=== PATIENT | female | born 1970 | race Caucasian/White ===

== ENCOUNTER 2016-07-13 16:00 | Emergency (ER) | payer OTHER ==
[~2016-07-13] VITALS: Wt 113.5 kg
[2016-07-13] MEDS ORDERED: MECL12.574 PO (16:36)
--- NOTE | 2016-07-13 16:55 | ERD ---
ER Documentation Chief Complaint Date/Time DATE: 07/13/16 TIME: 16:49 Chief Complaint DIZZINESS X1WEEK WORSE AFTER BENDING DOWN OTHER NEURODEFICITS HPI 46-year-old female is complaining of dizziness 1 week. Patient stated that she feels dizzy whenever she turns her head or bend her head down. The dizziness is intermittent, described the dizziness as the feeling of about to fall with spinning sensation. Patient reports blurry vision during the dizzy spells. She also reports decreased hearing in the left ear 1 day before the onset of the dizziness. Denies fever or chills. Denies ear pain. Denies tinnitus. Denies recent head injuries. ROS All systems reviewed and are negative except as per history of present illness. Medications Home Meds Active Scripts Meclizine Hcl* (Antivert*) 12.5 Mg Tab, 12.5 MG PO Q6H Y for DIZZINESS, #20 TAB Prov:NICO SALDANA. LEHR CUTTER 07/13/16 PMhx/Soc History of Surgery: No Anesthesia Reaction: No Hx Neurological Disorder: No Hx Respiratory Disorders: No Hx Cardiac Disorders: No Hx Psychiatric Problems: No Hx Miscellaneous Medical Probl: No Hx Alcohol Use: No Hx Substance Use: No Hx Tobacco Use: No Smoking Status: Never smoker Physical Exam Vitals Vital Signs Date Time Temp Pulse Resp B/P Pulse Ox O2 Delivery O2 Flow Rate FiO2 07/13/16 16:04 97.3 71 20 138/86 97 Physical Exam General: Well-developed, well-nourished, conscious and coherent, in no distress Skin: Warm and dry without rash, good texture and turgor Head: Normocephalic without evidence of trauma Eyes: Sclera and conjunctivae normal; pupils equal, round, and reactive to light; extraocular movements are intact. Horizontal nystagmus noted bilaterally. Ears: Canals are patent. Tympanic membranes are clear Nose/Face: Without rhinorrhea Mouth/throat: Mucous membranes are moist. Posterior pharynx clear without erythema or exudates Neck: Supple without meningismus or adenopathy. Carotids are equal. Trachea midline. No bruits or JVD Chest: Normal AP diameter. Good expansion without retractions. Nontender. Lungs are clear to auscultate bilaterally with good tidal volume Heart: Regular rate and rhythm. No murmur, rub, or gallops heard Abdomen: Soft and nontender without masses, guarding, or rebound. Bowel sounds are active. No hepatosplenomegaly Back: Without spinal or CVA tenderness Pelvis: Nontender to palpation and stable to compression Extremities: Full range of motion. Good strength bilaterally. No clubbing, cyanosis, or edema. Peripheral pulses are intact. Sensation intact Neuro: Alert and oriented 4, GCS 15. Cranial nerves grossly intact. Motor and sensory exams nonfocal. Moves all extremities. Speech clear. Gait normal Procedures/MDM Well-appearing 46-year-old female presented ED with intermittent vertigo 1 week. She does not have any active ataxia, her speech is clear. I doubt central causes of vertigo such as cerebellar stroke, vertigo artery dissection, acoustic neuroma. Likely her vertigo is either benign positional vertigo,, or M nire's disease. I advised patient to follow-up with her PCP for referral to ENT and physical therapy. Patient appears well, stable for discharge and outpatient management. Medical decision making shared with patient and family. Education provided to patient and family. Patient and family expressed understanding of the plan. Medications on discharge: Meclizine. Follow-up: Primary care provider in 2-3 days or return to ED if worse. Departure Diagnosis: Primary Impression: Vertigo Condition: Good Patient Instructions: Inner Ear Problems: Causes of Dizziness (Vertigo) [facility] Usted se fernandez hecho un examen mdico de control que le indica que no est en latisha condicin que requiera tratamiento urgente en el Departamento de Emergencia. Un estudio ms profundo y el tratamiento de vang condicin pueden esperar sin ningn riesgo hasta que usted sea atendida/o en el consultorio de vang mdico o latisha cl jose. Es responsabilidad suya arreglar latisha dayanara para el seguimiento del aby. MANEJO DE CONDICIONES NO URGENTES EN EL FUTURO 1) Si usted tiene un mdico de atencin primaria: Usted debera llamar a vang mdico de atencin primaria antes de venir al departamento de emergencia. Despus de las horas de consultorio, vang doctor o vang asociado/a est disponible por telfono. El mdico o enfermero de leo en el servicio telefnico puede asesorarle por naya medio para atender el problema, o aby contrario se puede programar latisha dayanara. 2) Si usted no tiene un mdico de atencin primaria: Llame al mdico o clnica de referencia que aparece abajo marie las horas de consultorio para hacer latisha dayanara para que le vean. CLINICAS: [place] [phone] [facility] [phone] [facility] [phone] [place] [phone] [facility]. [place] [address] [phone] [facility] [phone] [address] Additional Instructions: Llame al doctor MAANA y bettina latisha DAYANARA PARA DENTRO DE 2-3 TELLEZ.Dgale a la secretaria que nosotros le instruimos hacer esta dayanara.Avise o llame si vang condicin se empeora antes de la dayanara. Regresa aqui si peor o no mejor. NICO SALDANA NP July 13, 2016 16:55
== END 2016-07-13 17:08 | disposition home or self-care (01) ==
LOC: FTE 16:00
DX: R42 Dizziness and giddiness (principal)
CPT/HCPCS: 99283

== ENCOUNTER 2016-10-21 15:15 | Emergency (ER) | payer OTHER ==
[~2016-10-21] VITALS: Ht 144.8 cm; Wt 115.0 kg
[~2016-10-21 15:15] MED LIST: MECL12.574 PO
[2016-10-21 15:17] VITALS: Ht 144.8 cm; Wt 115.0 kg
[2016-10-21] MEDS ORDERED: HYDROCODONE/APAP (5/325) TAB PO ONE (16:00)
--- NOTE | 2016-10-21 17:10 | RADRPT ---
PROCEDURE: XR left ankle. CLINICAL INDICATION: Left -sided ankle pain TECHNIQUE: AP , oblique and lateral views of theleft ankle were performed. COMPARISON: None. FINDINGS: There is normal mineralization and alignment. No fracture or osseous lesion is identified. The ankle mortis and talar dome are intact.Incidental plantar calcaneal spur is present. Diffuse soft tissue swelling is present. There is no evidence for a radiopaque foreign body. RPTAT:HJJR IMPRESSION: Soft tissue swelling without evidence of acute osseous abnormality of the left ankle. Physician Alli Date Time Electronically viewed and signed by Physician Alli on 10/21/2016 17:09 JR/
--- NOTE | 2016-10-21 17:11 | RADRPT ---
PROCEDURE: XR Tibia and Fibula. CLINICAL INDICATION: Generalized pain TECHNIQUE: AP and lateral of the left tibia and fibula were obtained. COMPARISON: Left ankle series 10/21/2016 FINDINGS: There is normal mineralization and alignment. No fracture or osseous lesion is identified. Diffuse s oft tissue swelling is present. There is no evidence of subcutaneous gas or radiopaque foreign body . RPTAT:HJJR IMPRESSION: Soft tissue swelling without evidence of osseous abnormality involving the left tibia and fibula. Physician Alli Date Time Electronically viewed and signed by Physician Alli on 10/21/2016 17:10 /
[2016-10-21] MEDS ORDERED: IBUP-1542 PO (17:45)
--- NOTE | 2016-10-21 18:35 | ERD ---
ER Documentation Chief Complaint Date/Time DATE: 10/21/16 TIME: 18:31 Chief Complaint LEFT MEDIAL MALLEOUS SWELLING & PAIN X 5 DAYS HPI This is a 46-year-old female presents to the ER with left ankle pain that started 5 days ago after she twisted her ankle. Patient tried taking ibuprofen for her pain however has not worked. Pain is severe and constant, it is worse whenever she walks. She states that area has also gotten slightly swollen. She denies any numbness tingling or weakness of her foot. She denies any redness. She denies any fevers or chills. ROS 12 point review of systems was done, all negative except per HPI. Medications Home Meds Active Scripts Ibuprofen* (Motrin*) 600 Mg Tab, 600 MG PO Q6, #30 TAB Prov:BRUNA GARCIA 10/21/16 Meclizine Hcl* (Antivert*) 12.5 Mg Tab, 12.5 MG PO Q6H Y for DIZZINESS, #20 TAB Prov:NICO SALDANA. AUTOMATIC LATHE OPERATOR 07/13/16 Allergies Allergies: Coded Allergies: No Known Allergy (Unverified , 10/21/16) PMhx/Soc History of Surgery: No Anesthesia Reaction: No Hx Neurological Disorder: No Hx Respiratory Disorders: Yes (ASTHMA ) Hx Cardiac Disorders: No Hx Psychiatric Problems: No Hx Miscellaneous Medical Probl: No Hx Alcohol Use: No Hx Substance Use: No Hx Tobacco Use: No Smoking Status: Never smoker Physical Exam Vitals Vital Signs Date Time Temp Pulse Resp B/P Pulse Ox O2 Delivery O2 Flow Rate FiO2 10/21/16 15:17 98.4 86 20 159/84 97 Physical Exam GENERAL: The patient is well developed and appropriate for usual state of health , in no apparent distress. HEENT: Atraumatic CHEST: Clear to auscultation bilaterally. There are no rales, wheezes or rhonchi. HEART: Regular rate and rhythm. No murmurs, clicks, rubs or gallops. EXTREMITIES: Ankle Patient has painful ambulation. left ankle is without obvious asymmetry or deformity when compared to the right ankle. Patient can flex/ext, invert/mandi ankle. No obvious surface trauma, ecchymosis. Bony tenderness to the medial malleolus, no tenderness to the lateral malleolus. Anterior talofibular ligament, posterior talofibular ligament, calcaneofibular ligament NT and without swelling. Not tender or deformity of the midfoot or over the proximal fifth metatarsal, good dorsalis pedis and posterior tibial pulses and sensation to light touch is normal. Talar tilt test is negative for ligament laxity to valgus or varus stress. Negative anterior drawer.. Peroneal nerve is intact with strong eversion and plantarflexion. Negative squeeze test. Knee: Full and non painful ROM, not TTP. Patient does not have any tenderness to palpation along the distal tibia or fibula. NEURO: Alert and oriented SKIN: There is no apparent rash or petechia. The skin is warm and dry. Results 24 hrs Current Medications Medications (Trade) Dose Ordered Sig/Steff Route PRN Reason Start Time Stop Time Status Last Admin Dose Admin Acetaminophen/ Hydrocodone Bitart ([place] (5/325)) 1 tab ONCE ONCE PO 10/21/16 16:00 10/21/16 16:01 DC 10/21/16 16:04 [place] [address] Radiology Main Line: [phone] DIAGNOSTIC IMAGING REPORT Patient: EVERARDO LANDRY : 1970 Age: 46 Sex: F MR #: [id number] DOS: 10/21/16 0000 Ordering MD: BRUNA GARCIA PA-C Location: [facility] Room/Bed: PROCEDURE: XR left ankle. CLINICAL INDICATION: Left -sided ankle pain TECHNIQUE: AP , oblique and lateral views of theleft ankle were performed. COMPARISON: None. FINDINGS: There is normal mineralization and alignment. No fracture or osseous lesion is identified. The ankle mortis and talar dome are intact.Incidental plantar calcaneal spur is present. Diffuse soft tissue swelling is present. There is no evidence for a radiopaque foreign body. RPTAT:HJJR IMPRESSION: Soft tissue swelling without evidence of acute osseous abnormality of the left ankle. Physician Alli Date Time Electronically viewed and signed by Physician Alli on 10/21/2016 17:09 JR/ CC: BRUNA GARCIA [place] [address] Radiology Main Line: [phone] DIAGNOSTIC IMAGING REPORT Patient: EVERARDO LANDRY : 1970 Age: 46 Sex: F MR #: [id number] DOS: 10/21/16 0000 Ordering MD: BRUNA GARCIA. PA-C Location: [facility] Room/Bed: PROCEDURE: XR Tibia and Fibula. CLINICAL INDICATION: Generalized pain TECHNIQUE: AP and lateral of the left tibia and fibula were obtained. COMPARISON: Left ankle series 10/21/2016 FINDINGS: There is normal mineralization and alignment. No fracture or osseous lesion is identified. Diffuse soft tissue swelling is present. There is no evidence of subcutaneous gas or radiopaque foreign body. RPTAT:HJJR IMPRESSION: Soft tissue swelling without evidence of osseous abnormality involving the left tibia and fibula. Physician Alli Date Time Electronically viewed and signed by Physician Alli on 10/21/2016 17:10 JR/ CC: BRUNA GARCIA Procedures/MDM Differential diagnosis includes but is not limited to ankle sprain, ankle fracture, Achilles tendon rupture, proximal fibula fracture, distal fibula avulsion fracture, bimalleolar or trimalleolar fracture, peroneal nerve injury, acute compartment syndrome. At this time there is no evidence of any fractures or dislocations this is likely a sprain. Patient was put in an [place] wrap. She will be sent home with ibuprofen. She is to follow-up with her primary care doctor within 1-2 days or return to ER sooner if symptoms worsen. My medical decision making sure with the patient she understands and agrees with plan. Departure Diagnosis: Primary Impression: Ankle sprain Condition: Stable Patient Instructions: Self-Care for Strains and Sprains Additional Instructions: Llame al doctor MAANA y bettina latisha DAYANARA PARA DENTRO DE 1-2 TELLEZ.Dgale a la secretaria que nosotros le instruimos hacer esta dayanara.Avise o llame si vang condicin se empeora antes de la dayanara. Regresa aqui si peor o no mejor. BRUNA GARCIA Oct 21, 2016 18:35
== END 2016-10-21 17:58 | disposition home or self-care (01) ==
LOC: FTE 15:15
DX: S93.412A Sprain of calcaneofibular ligament of left ankle, initial encounter (principal); J45.909 Unspecified asthma, uncomplicated; X50.9XXA Other and unspecified overexertion or strenuous movements or postures, initial encounter; Y92.9 Unspecified place or not applicable
CPT/HCPCS: 73590; 73610; Z7502; Z7610

== ENCOUNTER 2017-09-15 16:32 | Emergency (ER) | END 2017-09-15 18:54 | disposition home or self-care (01) ==